=== PATIENT | female | born 2000 | race African-American/Black ===

== ENCOUNTER 2022-04-30 13:37 | Outpatient (CLI) | payer MEDICAID, SELFPAY | END 2022-04-30 13:38 | disposition home or self-care (01) | LOC: LKVREF 05-01 15:14 | PROVIDERS: Visit Provider Nurse Practitioner Family | DX: Z11.3 Encounter for screening for infections with a predominantly sexual mode of transmission (principal) | CPT/HCPCS: 87491; 87591 ==